=== PATIENT | female | born 1965 | race Caucasian/White ===

== ENCOUNTER → 2018-05-15 | Outpatient (CLI) | payer OTHER ==
[~2018-05-15] MED LIST: CITRATE OF MAG296 ML PO; COLACE100 MG PO; HYDROCODONE-AP1 EAC6 PO; INVOKANA300 MG PO; LEVEMIR SUBQ; PRAVACHOL20 MG PO; ZOFRAN ODT4 MG PO
== END ==
LOC: M.RAD 10:40
DX: Z12.31 Encounter for screening mammogram for malignant neoplasm of breast (principal)

== ENCOUNTER → 2021-10-26 | Outpatient (CLI) | payer OTHER | LOC: M.RAD 12:49 | PROVIDERS: ATTEND Nurse Practitioner Family | DX: Z12.31 Encounter for screening mammogram for malignant neoplasm of breast (principal) ==

== ENCOUNTER → 2021-11-06 | Outpatient (CLI) | payer OTHER | LOC: M.RAD 11-02 09:56 | PROVIDERS: ATTEND Nurse Practitioner Family | DX: N63.11 Unspecified lump in the right breast, upper outer quadrant (principal); R92.8 Other abnormal and inconclusive findings on diagnostic imaging of breast ==

== ENCOUNTER → 2021-11-10 | Outpatient (CLI) | payer OTHER ==
--- NOTE | 2021-11-12 17:07 | PATH ---
[address] [address] PATHOLOGY RPT PROCEDURE Name: MEGHANA LARSEN Room: [facility].#: [id number] Admission: 11/10/21 Date of : 63 Discharge: Report #: [id number] Path Case #: [id number] [facility] Accession Number: [id number] . 01 Material submitted: . PART A: breast - RIGHT BREAST CALCIFICATION. Modifiers: right PART B: breast - RIGHT BREAST BIOPSY. Modifiers: right . 01 Clinical history: . RIGHT BREAST STEREOTACTIC BIOPSY FOR CALCIFICATIONS . 02 Diagnosis: A. 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 - Focal fibrocystic change, including fibrosis, apocrine metaplasia, and duct ectasia. - Negative for atypia and malignancy. . B. Breast "right 1003 cm FN", needle biopsy: - Focal dense fibrosis with minimal usual ductal hyperplasia. - Fine microcalcification. - Negative for atypia and malignancy. (MLK:pit; 11/12/2021) QTP 11/12/2021 1702 Local . 02 Comment: The case is seen in co-review, with consensus, by Dr. Randall Dunlap on 11/12/2021. (MLK:pit; 11/12/2021) . 02 Electronically signed: . Miguel Noonan MD, Pathologist NPI- [id number] . 01 Gross description: . A. The specimen is received in formalin, labeled "Meghana Larsen, right breast calcifications". Received are 5 needle cores of fibrofatty tissue measuring 4.0 x 2.5 x 0.5 cm in aggregate dimensions. The specimen is submitted entirely in cassettes A1-A3. The specimen is collected at 1135 and placed into formalin at 1140 on 11/10/2021. The specimen is removed from formalin at 1650 on 11/11/2021. The total formalin fixation time is 29 hours and 10 minutes. . B. The specimen is received in formalin, labeled "Meghana Larsen, right breast biopsy 1003 cm FN". Received are 4 needle cores of fibrofatty tissue measuring 1.3 x 0.8 x 0.2 cm in aggregate dimensions. The specimen is submitted entirely in cassettes B1-B3[place] [address] PATHOLOGY RPT PROCEDURE Name: MEGHANA LARSEN [id number] Admission: 11/10/21 Date of : 63 Discharge: Report #: [id number] Path Case #: [id number] collected at 1156 and placed into formalin at 1156 on 11/10/2021. The specimen is removed from formalin at 1840 on 11/11/2021. The total formalin fixation time is 18 hours and 44 minutes. ([facility]; 11/10/2021) NRI/NRI 11/10/2021 2140 Local . 02 Pathologist provided ICD-10: D24.1, N60.01, N60.31, N60.81, N60.41, N62 . 02 CPT . 681678, 130641 Specimen Comment: A courtesy copy of this report has been sent to [phone], [phone] Specimen Comment: [phone] Specimen Comment: Report sent to , DR DENT / DR MATTHEWS Performed at: 01 [facility] [address] [id number] MD Wilber Mitchell MD Phone: [phone] Performed at: 02 [facility] [address] [id number] MD Randall Dunlap MD Phone: [phone]
== END ==
LOC: M.RAD 10:43
PROVIDERS: ATTEND Nurse Practitioner Family
DX: R92.1 Mammographic calcification found on diagnostic imaging of breast (principal); D24.1 Benign neoplasm of right breast; N60.01 Solitary cyst of right breast; N60.31 Fibrosclerosis of right breast; N60.81 Other benign mammary dysplasias of right breast; N60.41 Mammary duct ectasia of right breast; N62 Hypertrophy of breast